=== PATIENT | female | born 1940 | race Caucasian/White ===

== ENCOUNTER 2017-04-11 14:31 | Observation (INO) | payer MEDICARE ==
[~2017-04-11] VITALS: Ht 157.5 cm; Wt 65.8 kg
[2017-04-11 16:10] LABS: HEMOGLOBIN 12.4 gm/dl (12.3-15.3); RED BLOOD COUNT 3.98 M/UL (4.00-5.10); WHITE BLOOD COUNT 5.6 K/UL (4.5-11.0)
[2017-04-11 16:26] LABS: BUN/CREATININE RATIO 13 (0-10)
[2017-04-11] MEDS ORDERED: CITALOPRAM HBR10 MG PO (23:16)
[2017-04-11] MEDS ORDERED: SIMVASTATIN20 MG PO (23:17)
[2017-04-11] MEDS ORDERED: ARICEPT10 MG PO (23:17)
[2017-04-11] MEDS ORDERED: ASPIRIN EC81 MG PO (23:19)
[2017-04-11] MEDS ORDERED: [UNRECOGNIZED DRUG - OTHER] PO (23:19)
[2017-04-11] MEDS ORDERED: VITAMIN B-1000 MCG/M IM (23:21)
[2017-04-11] MEDS ORDERED: ALLEGRA ALLERG180 MG PO (23:21)
[2017-04-12 06:50] LABS: HEMOGLOBIN 12.2 gm/dl (12.3-15.3); RED BLOOD COUNT 3.85 M/UL (4.00-5.10)
[2017-04-12 06:55] LABS: WHITE BLOOD COUNT 7.6 K/UL (4.5-11.0)
[2017-04-12 07:17] LABS: BUN/CREATININE RATIO 13 (0-10)
== END 2017-04-12 16:20 | disposition home or self-care (01) ==
LOC: ER1 14:31 → MED SURG 4 17:00 → ZEROF 17:00 → MED SURG 4 22:25
PROVIDERS: Emergency Medicine; ADMIT Internal Medicine
DX: R11.2 Nausea with vomiting, unspecified (principal); R06.02 Shortness of breath; F03.90 Unspecified dementia, unspecified severity, without behavioral disturbance, psychotic disturbance, mood disturbance, and anxiety; E78.5 Hyperlipidemia, unspecified; E53.8 Deficiency of other specified B group vitamins; G45.9 Transient cerebral ischemic attack, unspecified; F17.210 Nicotine dependence, cigarettes, uncomplicated; Z79.82 Long term (current) use of aspirin; Z79.899 Other long term (current) drug therapy; Z90.49 Acquired absence of other specified parts of digestive tract; Z98.41 Cataract extraction status, right eye; Z98.42 Cataract extraction status, left eye; Z88.6 Allergy status to analgesic agent
CPT/HCPCS: 36415; 71010; 80048; 80053; 80061; 82550; 82553; 83690; 83735; 83874; 84484; 85025; 93005; 99285; G0378